=== PATIENT | female | born 1960 | race Caucasian/White ===

== ENCOUNTER 2018-09-20 07:15 | Emergency (ER) | payer MEDICAID, OTHER ==
[~2018-09-20] VITALS: Ht 175.3 cm; Wt 54.4 kg
[~2018-09-20 07:15] MED LIST: ALBU18; BECL0.07; BUPR-60
[2018-09-20] MEDS ORDERED: TERBUTALINE SULFATE 1 MG/ML 1ML VIAL SC ONE (07:45)
[2018-09-20] MEDS ORDERED: ALBUTEROL SULF 2.5 MG/0.5ML(0.5%) NEB SOLN HHN ONE (07:45)
[2018-09-20] MEDS ORDERED: IPRATROPIUM BROM 0.5 MG/2.5ML INH SOL HHN ONE (07:45)
[2018-09-20] MEDS ORDERED: methylPREDNISolone SOD SUCC 125 MG/2 ML VL IV ONE (07:45)
[2018-09-20] MEDS ORDERED: SODIUM CHLORIDE 0.9% 1,000 ML IV ONE (07:45)
[2018-09-20 07:47] VITALS: BP 116/86
== END 2018-09-20 09:30 | disposition home or self-care (01) ==
LOC: EDBD 07:15 → ER 07:17
DX: J45.901 Unspecified asthma with (acute) exacerbation (principal); I10 Essential (primary) hypertension; E78.00 Pure hypercholesterolemia, unspecified
CPT/HCPCS: 71045; 94640; 94761; 96374; 99283; J2930; J3105; J7030; J7611; J7644

== ENCOUNTER 2023-09-10 15:07 | Emergency (ER) | payer MEDICAID ==
[~2023-09-10] VITALS: Ht 167.6 cm; Wt 116.7 kg
[2023-09-10 15:15] VITALS: BP 152/91; RESP 18; O2SAT 94
[2023-09-10 15:25] VITALS: PULSE 83
[2023-09-10] MEDS ORDERED: IPRATROPIUM BROM 0.5 MG/2.5ML INH SOL NEB ONE (16:30)
[2023-09-10] MEDS ORDERED: ALBUTEROL MEDNEB 2.5 mg/3ml NEB NEB ONE (16:30)
[2023-09-10] MEDS ORDERED: methylPREDNISolone SOD SUCC 125 MG/2 ML VL IM ONE (16:30)
[2023-09-10] MEDS ORDERED: PRED20TA2 PO (17:37)
== END 2023-09-10 17:41 | disposition home or self-care (01) ==
LOC: ER 15:07
DX: J45.909 Unspecified asthma, uncomplicated (principal); I10 Essential (primary) hypertension; E78.5 Hyperlipidemia, unspecified; R07.89 Other chest pain
CPT/HCPCS: 71046; 93005; 96372; 99283; J2930; J7644